=== PATIENT | female | born 1960 | race Caucasian/White ===

== ENCOUNTER 2017-01-08 20:50 | Observation (INO) | payer MEDICAID ==
[~2017-01-08] VITALS: Ht 167.6 cm; Wt 72.7 kg
[2017-01-08] MEDS ORDERED: ALPR0.5T PO (21:14)
[2017-01-08 22:00] LABS: HEMATOCRIT 37.8 % (34.6-47.8); HEMOGLOBIN 12.8 g/dL (11.7-16.4)
[2017-01-08] MEDS ORDERED: ZIPRASIDONE 20 MG INJ IM ONE (22:00)
[2017-01-08 22:10] LABS: ASPARTATE AMINO TRANSFERASE 32 U/L (15-37); BLOOD UREA NITROGEN 10 mg/dL (7-18)
[2017-01-08 22:18] LABS: ACETAMINOPHEN < 2 mcg/mL (10-30); IS PT STATUS REG ER OR PRE ER? YES
[2017-01-09 03:01] LABS: DAU SCREEN DISCLAIMER
[2017-01-09] MEDS ORDERED: HALOPERIDOL 5 MG/ML IM PRN (06:00)
[2017-01-09] MEDS ORDERED: TEMAZEPAM 15 MG CAPSULE PO PRN (06:00)
[2017-01-09] MEDS ORDERED: BENZTROPINE 1 MG TABLET PO PRN ×2 (06:00)
[2017-01-09] MEDS ORDERED: ZIPRASIDONE 20 MG INJ IM PRN (06:00)
[2017-01-09 06:22] VITALS: BP 140/90
[2017-01-09] MEDS ORDERED: DEXT30TA PO (13:12)
[2017-01-09] MEDS ORDERED: LEVO200T5 PO (13:12)
[2017-01-09] MEDS ORDERED: BUPR150T6 PO (13:12)
[2017-01-09] MEDS ORDERED: PARO40TA3 PO (13:12)
[2017-01-09] MEDS ORDERED: HYDR-3245 PO (13:12)
[2017-01-09] MEDS ORDERED: ARIP5TAB13 PO (13:12)
[2017-01-09 19:29] VITALS: BP 113/70
[2017-01-10 08:12] VITALS: BP 128/80
== END 2017-01-10 13:30 ==
LOC: ED 23:03 → EDIP 01-09 04:21 → EDBD 01-09 04:21 → UNDOADMOB 01-09 04:21 → 3E 01-09 06:16
PROVIDERS: ADMIT Student in an Organized Health Care Education/Training Program; ATTEND Internal Medicine
DX: F23 Brief psychotic disorder (principal); F15.950 Other stimulant use, unspecified with stimulant-induced psychotic disorder with delusions; J98.11 Atelectasis; E87.1 Hypo-osmolality and hyponatremia; F13.9 Sedative, hypnotic or anxiolytic-related use, unspecified; F32.0 Major depressive disorder, single episode, mild
CPT/HCPCS: 36415; 70450; 71010; 80053; 80307; 80329; 81003; 84484; 85025; 93005; 96372; 99285; G0378; J3486; G0479; G0480